=== PATIENT | male | born 1965 | race Caucasian/White ===

== ENCOUNTER 2019-12-11 14:20 | Inpatient (IN) | payer SELFPAY ==
[~2019-12-11] VITALS: Ht 188 cm; Wt 142.2 kg
[2019-12-11] MEDS ORDERED: ONDANSETRON HCL INJ 2MG/ML 2ML 2 MG/ML VIAL IV STA (14:29)
[2019-12-11] MEDS ORDERED: LABETALOL HCL 5 MG/ML 20ML VIAL IV STA (14:29)
[2019-12-11] MEDS ORDERED: MORPHINE SULFATE INJ 4 MG/ML INJ 1ML IV STA (14:29)
[2019-12-11] MEDS ORDERED: ASPIRIN 81 MG CHEW TAB PO ONE (14:30)
[2019-12-11 14:57] LABS: BASOPHILS % 0.2 % (0.0-1.0); EOSINOPHILS % 0.4 % (0.0-6.0); HEMATOCRIT 43.4 % (38.2-49.6); HEMOGLOBIN 15.1 g/dL (14.0-18.0); LYMPHOCYTES # (AUTO) 1.2 (1.0-3.2); LYMPHOCYTES % 11.4 % (18.0-39.1); MEAN CORPUSCULAR HEMOGLOBIN 30.1 pg (28-32); MEAN CORPUSCULAR HGB CONC 34.8 g/dL (31-35); MEAN CORPUSCULAR VOLUME 86.6 fL (81-99); MONOCYTES # (AUTO) 0.7 (0.2-0.8); MONOCYTES % 7.3 % (4.4-11.3); NEUTROPHILS # (AUTO) 8.2 (2.1-6.9); NEUTROPHILS % 80.4 % (38.7-80.0); PLATELET COUNT 212 x10e3/uL (140-360); RED BLOOD COUNT 5.01 x10e6/uL (4.3-5.7); RED CELL DISTRIBUTION WIDTH 13.7 % (11.7-14.4)
[2019-12-11] MEDS ORDERED: DIAZEPAM 5 MG TAB PO ONE (15:00)
[2019-12-11 15:15] LABS: INR 0.9; PROTHROMBIN TIME 12.7 seconds (11.9-14.5)
[2019-12-11 15:16] LABS: PARTIAL THROMBOPLASTIN TIME 27.4 seconds (23.8-35.5)
[2019-12-11 15:20] LABS: ALANINE AMINOTRANSFERASE 46 IU/L (0-55); ALBUMIN 4.1 g/dL (3.5-5.0); ALBUMIN/GLOBULIN RATIO 1.5 (0.8-2.0); ALKALINE PHOSPHATASE 58 IU/L (40-150); ANION GAP 13.7 mmol/L (8-16); BLOOD UREA NITROGEN 11 mg/dL (7-26); BUN/CREATININE RATIO 13 (6-25); CALCIUM 9.1 mg/dL (8.4-10.2); CARBON DIOXIDE 22 mmol/L (22-29); CHLORIDE 104 mmol/L (98-107); CREATINE KINASE 1187 IU/L (30-200); CREATININE, SERUM 0.84 mg/dL (0.72-1.25); EST GLOMERULAR FILTRATION RATE > 60 ML/MIN (60-); GLUCOSE 188 mg/dL (74-118); MAGNESIUM 1.8 MG/DL (1.3-2.1); POTASSIUM 3.7 mmol/L (3.5-5.1); SODIUM 136 mmol/L (136-145)
--- NOTE | 2019-12-11 15:32 | Diagnostic Imaging Report ---
EXAMINATION: CHEST SINGLE (PORTABLE) INDICATION: Chest pain COMPARISON: None FINDINGS: LINES/TUBES:EKG leads overlie the chest. LUNGS:The lungs are well-inflated. No focal consolidation or pulmonary edema. PLEURA:No pleural effusion or pneumothorax. MEDIASTINUM:The cardiomediastinal silhouette appears normal in size and shape. BONES/SOFT TISSUES:No acute osseous injury. ABDOMEN:No free air under the diaphragm. IMPRESSION: No focal pneumonia or pulmonary edema. Signed by: Nisha Barnard MD on 12/11/2019 3:29 PM
[2019-12-11] MEDS ORDERED: ASPIRIN 81 MG CHEW TAB PO STA (15:44)
[2019-12-11] MEDS ORDERED: CLOPIDOGREL BISULFATE 75 MG TAB PO ONE (15:45)
[2019-12-11] MEDS: METOPROLOL TARTRATE 25 MG TAB PO SCH (15:45)
[2019-12-11] MEDS ORDERED: MORPHINE SULFATE 2 MG/ML SYR 1ML IV PRN (15:45)
--- NOTE | 2019-12-11 15:50 | NUR ---
Dr. Hyun Varma in with patient. laborer shipyard nurse in room with patient. discussed procedure with patient. printed out consent but cathlab nurse already had one. patient being prepped for transfer to laborer shipyard. son retrieved from parking lot and brought to see patient.
[2019-12-11 15:55] LABS: CLARITY,URINE SL CLOUDY (CLEAR); COLOR,URINE YELLOW (YELLOW); LEUKOCYTE ESTERASE ,URINE NEGATIVE (NEGATIVE); NITRITE,URINE NEGATIVE (NEGATIVE)
[2019-12-11 15:56] LABS: BILIRUBIN,URINE NEGATIVE (NEGATIVE); KETONES,URINE NEGATIVE (NEGATIVE); PROTEIN,URINE DIPSTICK NEGATIVE (NEGATIVE); URINE UROBILINOGEN 0.2 mg/dL (0.2 - 1)
[2019-12-11 15:57] LABS: AMPHETAMINES SCREEN,URINE NEGATIVE (NEGATIVE); BENZODIAZEPINES SCREEN,URINE NEGATIVE (NEGATIVE); PHENCYCLIDINE SCREEN,URINE NEGATIVE (NEGATIVE)
[2019-12-11] MEDS ORDERED: SODIUM CHLORIDE 0.9% 1000ML 1,000 ML ONE ×2 (15:59→16:05)
[2019-12-11] MEDS ORDERED: MIDAZOLAM HCL 2 MG/2 ML VIAL ONE (16:03)
[2019-12-11] MEDS ORDERED: BIVALRIUDIN 250 MG/VIAL VIAL IV ONE (16:04)
[2019-12-11] MEDS ORDERED: SODIUM CHLORIDE 0.9% 50ML 50 ML ONE (16:04)
[2019-12-11] MEDS ORDERED: LIDOCAINE HCL 2% LOCAL 20 ML VIAL ONE (16:04)
[2019-12-11] MEDS ORDERED: FENTANYL CITRATE/PF 100MCG/2 ML INJ ONE (16:04)
[2019-12-11] MEDS ORDERED: IOPAMIDOL 370 MG/ML 200 ML INFUS..BTL INJ ONE ×2 (16:05→16:50)
[2019-12-11] MEDS ORDERED: NITROGLYCERIN/D5W 200 MCG/ML 250 ML ONE (16:05)
[2019-12-11] MEDS ORDERED: HEPARIN SOD/SOD CHLORIDE 2,000 ML ONE (16:05)
[2019-12-11] MEDS: SODIUM CHLORIDE 0.9% 1000ML 1,000 ML IV SCH (16:08)
[2019-12-11] MEDS ORDERED: EPTIFIBATIDE 75mg 100ML 100 ML ONE ×2 (16:11→20:46)
[2019-12-11] MEDS ORDERED: EPTIFIBATIDE 20 ML ONE (16:11)
--- OUTSIDE RECORDS SUMMARY | 2019-12-11 16:39 | XMS REPORT ---
Author Author [facility] Organization [facility] Address Unknown Phone Unavailable Care Team Providers Care Community Theater Actor Name Role Phone Jason GODFREY Unavailable Unavailable Problems This patient has no known problems. Allergies, Adverse Reactions, Alerts This patient has no known allergies or adverse reactions. Medications This patient has no known medications. Results Test Description Test Time Test Comments Text Results Atomic Results Result Comments CHEST SINGLE (PORTABLE) 2019-12-11 15:28:00 [place] [address] Patient Name: PEARL LIAO MR #: [id number] : 1965 Age/Sex: 53/M Req #: [id number] Adm Physician: Ordered by: HORTENSIA GODFREY MD Report #: [id number] Location: ER Room/Bed: Procedure: [id number] DX/CHEST SINGLE (PORTABLE) Exam Date: 12/11/19 Exam Time: 1500 REPORT STATUS: Signed EXAMINATION: CHEST SINGLE (PORTABLE) INDICATION: Chest pain COMPARISON: None FINDINGS: LINES/TUBES:EKG leads overlie the chest. LUNGS:The lungs are well-inflated. No focal consolidation or pulmonary edema. PLEURA:No pleural effusion or pneumothorax. MEDIASTINUM:The cardiomediastinal silhouette appears normal in size and shape. BONES/SOFT TISSUES:No acute osseous injury. ABDOMEN:No free air under the diaphragm. IMPRESSION: No focal pneumonia or pulmonary edema. Signed by: Robyn Barnard MD on 12/11/2019 3:29 PM Dictated By: ROBYN BARNARD MD [id number] Transcribed By: SHIKHA on 12/11/19 1529 COPY TO: HORTENSIA GODFREY MD
[2019-12-11] MEDS ORDERED: CEFAZOLIN SOD 2 GM/D5W 50ML 50 ML IV ONE (17:42)
[2019-12-11 20:00] VITALS: BP 126/73
[2019-12-11] MEDS ORDERED: CLONAZEPAM 0.5 MG TAB PO PRN (20:30)
[2019-12-11] MEDS: ONDANSETRON HCL INJ 2MG/ML 2ML 2 MG/ML VIAL IV PRN (20:31)
[2019-12-11 21:00] VITALS: BP 156/92
[2019-12-11] MEDS ORDERED: EPTIFIBATIDE 75mg 100ML 100 ML IV SCH (21:15)
[2019-12-11] MEDS ORDERED: ACETAMINOPHEN 325 MG TAB PO PRN (21:30)
[2019-12-11] MEDS ORDERED: LABETALOL HCL 5 MG/ML 20ML VIAL IV PRN (21:30)
[2019-12-11 21:36] VITALS: BP 158/87
[2019-12-11 22:00] VITALS: BP 149/88
[2019-12-11] MEDS ORDERED: DEXTROSE 50% SYRINGE 50 ML IV PRN (22:00)
[2019-12-11 23:00] VITALS: BP 114/71
--- NOTE | 2019-12-11 23:51 | Consultation ---
DATE OF CONSULTATION: 12/11/2019 Cardiac Consultation REASON FOR CONSULTATION: Acute ftd-EL-ognooreku myocardial infarction. HISTORY OF PRESENT ILLNESS: A 53-year-old gentleman, who is known with back problem, obesity, "deviated septum," back pain, and hip pain. For the last 3 days, he is having exertional chest tightness, chest pressure, and back problem. He thought he hurt his back. Yesterday, the pain was very severe. Today, the pain recurred, very severe, associated with diaphoresis. So, he came to the emergency room. His EKG showed acute ST-elevation myocardial infarction, but his troponin was positive at 17, CK total of 1187, CK-MB of 120. He continued to have chest pain. The patient does have symptoms to suggest sleep apnea. There is wheezing and shortness of breath. He cannot stay flat. There is no paroxysmal nocturnal dyspnea. There is no syncope or presyncope. REVIEW OF SYSTEMS: GENERAL: No fever. No chills. HEENT: No vision problem. No hearing problem. PULMONARY AND CARDIAC: As per acute illness. No recent travel. No pleuritic chest pain. Typical myocardial infarction pain, preceded by angina by history. GI: No hematemesis. No melena. : No hematuria. No dysuria. MUSCULOSKELETAL: Back pain and hip pain. HEMATOLOGY: No easy bruising or bleeding. ENDOCRINE: No diabetes mellitus. No weight loss. No weight gain. No heat and cold intolerance. HEMATOLOGY: No easy bruising or bleeding. SOCIAL HISTORY: He is divorcee. He is nonsmoker, but rarely he will get a cigarette. He drinks wine every now and then. 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 PAST MEDICAL AND SURGICAL HISTORY: 1. Back surgery twice. 2. Deviated septum. 3. Sleep apnea. 4. Back pain. 5. Hip pain. 6. Minor hand surgery. 7. Obesity. FAMILY HISTORY: Father had complication of CVA during cardiac catheterization in [place]. Mother in her 80s. One brother who is obese and he got benzene, coma and a lot of complication. Two children, one son and one daughter. PHYSICAL EXAMINATION: VITAL SIGNS: Height of 6 foot 3 inches, weight of 285 pounds. Blood pressure 130/80, heart rate of 100, respiratory rate of 18. HEENT: Pupils are equal and reactive. NECK: No elevation of jugular venous pulsation. CHEST: Clear to auscultation and percussion. HEART: The heart sound is audible. Soft heart murmur is present. ABDOMEN: Soft, obese. EXTREMITIES: No cyanosis, no clubbing, no edema. NEUROLOGIC: Awake, alert, and oriented, very nervous. IMPRESSION AND PLAN: 1. Acute cpf-AR-hinlajeru myocardial infarction with continuation of angina and chest pain. 2. Obesity. 3. Sleep apnea. 4. Family history of coronary artery disease. 5. Inability to be flat in bed. 6. Hip problem. The patient was given Plavix, started on Integrilin IV fluids. He will be taken urgently to the supervisor labor gang. Procedure risks, benefits, and alternatives are discussed and explained. High risk is explained because of the gvn-EW-heuqrassk myocardial infarction. Questions are answered. MD CEDRICK Solis/TARUNL /[id number]
[2019-12-12] VITALS (14 sets, daily range): BP systolic 115–143; BP diastolic 61–97
--- NOTE | 2019-12-12 01:37 | Operative Report ---
DATE OF PROCEDURE: 12/11/2019 SURGEON: Chelo Varma MD PROCEDURES PERFORMED: 1. Left heart cardiac catheterization with coronary angiography. 2. Left ventriculography. 3. Complex percutaneous coronary intervention of the long proximal to distal right coronary artery lesion, culprit of btq-IN-lnvkftelp myocardial infarction. 4. Angio-Seal closure of the right common femoral arteriotomy. INDICATION FOR PROCEDURE: A 53-year-old male with history of hypertension, hypercholesteremia, morbid obesity, presents to this institution with escalating substernal chest pain, pressure, tightness, heaviness occurring at rest with troponin elevated to 17. This is classic mvd-AX-zthzclssm myocardial infarction. The patient was taken urgently to the tender labor. DESCRIPTION OF PROCEDURE: After risks, benefits, pros and cons of today's procedure was explained, the patient agreed to proceed. He was brought down to the cardiac catheterization laboratory, where the right groin was prepped and draped in usual sterile fashion. A 1% lidocaine solution was instilled in the right groin region and access to the right femoral artery was obtained. A short 4-Croatian femoral sheath was placed. We initially went up with a JL5 diagnostic catheter for selective left coronary artery. Then, we took a 3DRC diagnostic catheter for selective right coronary artery for right for angiography. Angled pigtail catheter was utilized for ventriculography and hemodynamic assessment of ventricular filling pressures. Essentially, the patient was found to have 100% distal RCA disease in a very complex ectatic artery. There was already some faint sobf-kq-rrbmu collaterals seen. At that point in time, we decided to proceed with intervention. He had already been preloaded with Plavix in the emergency room as well as given an aspirin. We gave IV Angiomax bolus for systemic anticoagulation with supplemental Integrilin infusion. We took a 6-Croatian 3DRC guiding catheter and selected the right coronary artery. Utilizing a 180 cm run-through wire, we probed the lesion, however, this would not penetrate the occluded segment in the mid to distal RCA. We then took a [employer] Emerge 2.0 x 15 mm pwtv-nuc-mkvr balloon and utilizing a Tape Edge Machine Operator 50 guidewire, we were able to after great care across the 100% occluded segment with the balloon into the segment and pre-dilated with 4 atmosphere inflations. This opened up the artery, which revealed severely diseased distal portion of the vessel. A very, very long lesion was noted. We ended up then taking out our Tape Edge Machine Operator 50 wire and utilize a 300 cm P[place] flex guidewire for the remainder of the intervention as a rail of intervention. We then took a 2.5 x 15 mm Emerge balloon and did 4 inflations up to 10 atmospheres of inflation to further pre-dilate all the way to the mid RCA. We then took a Resolute Joshua 2.75 x 38 mm drug-eluting stent. However, this would not pass easily. We took a 6-Croatian guideliner, got extension and took back the 2.75 x 38 mm Resolute [place] stent and this was able to cover the entire mid RCA. We were unable to pass it further. We decided to take the stent here and we deployed this up to 18 atmospheres of inflation. Once the stent went up, we were able to slide the guide extension into the distal RCA quite easily. We then took a Resolute Joshua 2.75 x 34 mm drug-eluting stent and treated from the crux of the RCA all the way back to the just right before the distal curvature. We then took up another Resolute Joshua 2.75 x 26 mm drug-eluting stent and overlapped the stent with two other stents. We then took an NC 3.5 x 15 mm Quantum apex balloon and postdilated the distal stent with 6 atmospheres inflation and then post dilate the entire segment going to 8 atmospheres just proximal to the 10 atmospheres, proximal to 12 atmospheres, proximal to that and then up to 15 atmospheres in the mid RCA and finally 20 atmospheres in the proximal stent edge. At that point in time, we looked at the vessel and following angiography revealed 0% residual stenosis. Normal flow and no issues. At that point in time, we decided to conclude the case. The guiding catheters were removed with the J-wire and an Angio-Seal closure device successfully deployed achieving hemostasis. COMPLICATIONS: None. ESTIMATED BLOOD LOSS: Minimal. FINDINGS: 1. Left main is angiographically normal, gives rise to an LAD and circumflex branch. 2. LAD has a 30% proximal stenosis, 30% mid stenosis and a 30% distal stenosis. The remainder of this vessel shows mild diffuse disease. 3. Left circumflex artery has an OM1 branch with a 70-75% proximal mid stenosis. This vessel terminates into an OM2 branch showed just mild irregularities. There is faint oijw-qz-rhotb collaterals seen filling the right PDA and right PLV system. 4. RCA is ectatic proximal segment with a 60% mid RCA stenosis. In the mid to distal RCA, there is 100% total occlusion of the RCA without any reconstituted flow. 5. Left ventricular ejection fraction is 40-45% with inferobasal hypokinesis. End-diastolic pressure is 22 mmHg. There is no significant LV to aortic pullback gradient. INTERVENTION SUMMARY: Successful treatment of the long diseased RCA with overlapping stents placement, going from distal to proximal is a Resolute 2.75 x 34 mm drug- eluting stent, followed by 2.75 x 26 mm drug-eluting stent, followed by 2.75 x 38 mm drug-eluting stent in the mid RCA. PLAN/RECOMMENDATIONS: 1. Aspirin and Plavix therapy. 2. Statin therapy. 3. Aggressive risk factor modification and medical therapy. 4. A 6-hour bedrest. 5. ICU for further care and management. MD MAGGY Higuera/KENDELL /[id number] MTDDivina
--- NOTE | 2019-12-12 02:51 | History and Physical ---
ADDITIONAL ATTENDING PHYSICIAN: Catracho Hernandez MD. CHIEF COMPLAINT: Chest pain. HISTORY OF PRESENT ILLNESS: The patient is a 53-year-old male, who had been working out with his son about 5 days ago, then subsequently three days ago started having some sharp back pain. His flank pain eased some with massage by his son. Middle last night, his chest pain became sharp in the center of his chest and did not subside, thus he came to the emergency department. His most recent left heart catheterization was [address] Varma with Cardiology followed. The patient's cardiac enzymes were elevated. He went to yard labor supervisor around 4:20 this afternoon and had 3 long stents placed in the right coronary artery. He does not have a PCP. PAST MEDICAL HISTORY: Obesity, hypertension, diabetes mellitus, and obstructive sleep apnea. PAST SURGICAL HISTORY: Laminectomy and umbilical hernia mesh surgery. FAMILY HISTORY: Father at age 62 from complications due to stroke, also had an [place] and back surgery. Mother is still alive at age 80. Ejection fraction 20%. History of back surgery. Brother has a history of an [place]. SOCIAL HISTORY: Occasional smoker, occasional drinker of wine. Admits to marijuana use. Denies any hard drugs such as cocaine, methamphetamine or crack. He lives with his mother and his son. He has been on disability in the last 3 years. He is not working, but does care for his elderly mother. ALLERGIES: NO KNOWN ALLERGIES. HOME MEDICATIONS: None listed. REVIEW OF SYSTEMS: CONSTITUTIONAL: The patient has been trying to lose weight lately, but generally unsuccessful. Last night he had some chills, none now. Complains of some dry throat. Denies any chills or fever now. EYES: Does not wear glasses. EARS AND NOSE: No complaints. RESPIRATORY: No complaints of shortness of breath, cough or phlegm. GENITOURINARY: Complaints of difficulty with urination. PSYCHIATRIC: Denies psychiatric history. INTEGUMENTARY: Denies lesions or rash. CARDIOVASCULAR: As listed per history of present illness. Currently, no complaints of chest pain or palpitations. GASTROINTESTINAL: No complaints of nausea, vomiting, diarrhea, or constipation. Most recent bowel movement was today, made the 1st. MUSCULOSKELETAL: Denies any muscular pain or joint pain. NEUROLOGIC: Denies headache or dizziness. ENDOCRINE: Known diabetic. HEMATOLOGIC: Denies any bleeding or bruising. PHYSICAL EXAMINATION: CURRENT VITAL SIGNS: Temperature 97.9, heart rate 77, respirations 16, blood pressure 142/89, and pulse oximetry 89% on room air. GENERAL: The patient is lying supine on a stretcher. BMI 40.2. HEENT: Extraocular eye movements intact. Sclerae anicteric. NECK: Supple. No lymphadenopathy. CHEST: Clear to auscultation. Respiratory pattern even and nonlabored. CARDIOVASCULAR: Regular rate and rhythm. No murmur. ABDOMEN: Bowel sounds positive. Obese, soft, and nontender. No guarding. EXTREMITIES: Without pitting edema. No clubbing, cyanosis, or signs or symptoms of DVT. SKIN: Warm and dry. NEUROLOGICAL: GCS 15. Nonfocal. PSYCHIATRIC: Normal judgment and insight. LABORATORY DATA: WBC 10.14, hemoglobin 15.1, hematocrit 43.4, and platelets 212. PT 12.7. INR 0.9. PTT 27.4. Sodium 136, potassium 3.7, chloride 104, CO2 of 22, anion gap 13.7, BUN 11, creatinine 0.84, estimated GFR greater than 60, glucose 188, calcium 9.1, magnesium 1.8. Total bilirubin 0.6, AST 121, ALT 46, alkaline phosphatase 58. Creatine kinase 1187, CK-MB 119.7, troponin I 17.134. B type natriuretic peptide 52.6. Total protein 6.9, albumin 4.1. Urinalysis showed slightly cloudy urine, negative nitrite, negative leukocyte esterase. TOXICOLOGY: Urine drug screen is positive for urine cannabinoids. Chest x-ray today showed no focal pneumonia or pulmonary edema. A 12-lead EKG done around 14:21 this afternoon showed normal sinus rhythm with a ventricular rate of 68. ASSESSMENT AND PLAN: 1. NSTEMI, status post PCI with placement of three long stents in the RCA on 12/11/[address] Varma. The patient has been taken from the yard labor supervisor to ICU room #195. Eptifibatide IV continues at 2 mcg/kg per minute. Continue cardiac medications such as aspirin, Plavix, p.r.n. morphine, labetalol 5 mg IV q.6 hours p.r.n. ordered for systolic blood pressure greater than 150. 2. Controlled hypertension. Monitor blood pressure. Continue metoprolol tartrate 25 mg p.o. q.12 hours and p.r.n. labetalol. 3. Uncontrolled type 2 diabetes mellitus. Glucose level is 188. We will check hemoglobin A1c in the morning/fingerstick blood glucose level be checked a.c. at bedtime. We will start low-dose regular insulin sliding scale. 4. Obstructive sleep apnea. The patient does not use a BiPAP or CPAP at home, monitor. 5. Morbid obesity with BMI 40.2. Dietary restrictions. 6. Prophylaxis. Pepcid and SCDs. Time spent 60 minutes. Billing code [id number]. Dictated by Daljit Canales NP MD ILIANA Gomez/MODL /[id number]
[2019-12-12] MEDS: SODIUM CHLORIDE 0.9% 1000ML 1,000 ML IV SCH (04:22)
[2019-12-12] MEDS: METOPROLOL TARTRATE 25 MG TAB PO SCH (04:22)
[2019-12-12 05:14] LABS: BASOPHILS % 0.3 % (0.0-1.0); EOSINOPHILS % 0.3 % (0.0-6.0); HEMOGLOBIN 14.4 g/dL (14.0-18.0); LYMPHOCYTES # (AUTO) 0.9 (1.0-3.2); LYMPHOCYTES % 11.9 % (18.0-39.1); MEAN CORPUSCULAR HEMOGLOBIN 29.6 pg (28-32); MEAN CORPUSCULAR HGB CONC 33.5 g/dL (31-35); MEAN CORPUSCULAR VOLUME 88.3 fL (81-99); MONOCYTES # (AUTO) 0.7 (0.2-0.8); MONOCYTES % 10.3 % (4.4-11.3); NEUTROPHILS # (AUTO) 5.5 (2.1-6.9); NEUTROPHILS % 76.8 % (38.7-80.0); PLATELET COUNT 175 x10e3/uL (140-360); RED BLOOD COUNT 4.87 x10e6/uL (4.3-5.7); RED CELL DISTRIBUTION WIDTH 13.8 % (11.7-14.4)
[2019-12-12 05:28] LABS: INR 0.98; PROTHROMBIN TIME 13.6 seconds (11.9-14.5)
[2019-12-12 05:29] LABS: PARTIAL THROMBOPLASTIN TIME 29.3 seconds (23.8-35.5)
[2019-12-12 05:39] LABS: MAGNESIUM 1.7 MG/DL (1.3-2.1); PHOSPHORUS 2.2 MG/DL (2.3-4.7)
[2019-12-12 05:43] LABS: ALANINE AMINOTRANSFERASE 46 IU/L (0-55); ALBUMIN 3.5 g/dL (3.5-5.0); ALBUMIN/GLOBULIN RATIO 1.2 (0.8-2.0); ALKALINE PHOSPHATASE 60 IU/L (40-150); BLOOD UREA NITROGEN 9 mg/dL (7-26); BUN/CREATININE RATIO 11 (6-25); CALCIUM 8.6 mg/dL (8.4-10.2); CARBON DIOXIDE 24 mmol/L (22-29); CHLORIDE 106 mmol/L (98-107); CHOL/HDL RATIO 6.3 (3.9-4.7); CHOLESTEROL 189 MD/DL (0-199); EST GLOMERULAR FILTRATION RATE > 60 ML/MIN (60-); GLUCOSE 173 mg/dL (74-118); HDL CHOLESTEROL 30 MG/DL (40-60); LDL CHOLESTEROL 115 MG/DL (60-130); SODIUM 139 mmol/L (136-145); TRIGLYCERIDES 220 MG/DL (0-149)
[2019-12-12 06:01] LABS: THYROID STIMULATING HORMONE 2.137 uIU/mL (0.350-4.940)
[2019-12-12] MEDS: ONDANSETRON HCL INJ 2MG/ML 2ML 2 MG/ML VIAL IV PRN (06:08)
[2019-12-12] MEDS ORDERED: MAGNESIUM OXIDE 400 MG TAB PO ONE (07:30)
[2019-12-12] MEDS ORDERED: FAMOTIDINE 20 MG TAB PO SCH (07:30)
[2019-12-12] MEDS: INSULIN REGULAR, HUMAN 100 UNIT/1 ML 3ML VIAL SQ SCH ×2 (07:44→11:24)
[2019-12-12] MEDS ORDERED: ASPIRIN 81 MG ENTERIC COATED PO SCH (09:00)
--- NOTE | 2019-12-12 09:33 | Progress Note ---
DATE: 12/12/2019 ADDITIONAL ATTENDING PHYSICIAN: Catracho Hernandez MD SUBJECTIVE: The patient is asleep, arouses easily. Denies pain. Does complain of nausea. States he ate "bad food" apparently in [place] a few days ago and thus has some nausea, otherwise minimal complaints. He has had some dry throat. Night before last, he had chills, but none now. Denies difficulty urinating. He has been out of bed. Last bowel movement yesterday. OBJECTIVE: VITAL SIGNS: Temperature 97.8, T-max 98.2, heart rate 68, blood pressure 142/97, respiratory rate 16, oxygen saturation 100%. GENERAL: Supine, asleep, easily arousable. BMI 40.16. HEENT: EOMI. Sclerae anicteric. NECK: Supple. No lymphadenopathy, thyromegaly, or JVD. CHEST: Minimal expiratory sibilant wheezing. Respiratory pattern even and unlabored. He is on 3 L of oxygen via nasal cannula. CARDIOVASCULAR: Regular rate and rhythm. No murmur. ABDOMEN: Bowel sounds positive. Obese, soft, nontender. No guarding. EXTREMITIES: No pitting edema, clubbing, cyanosis, or signs of DVT. SKIN: Warm and dry. NEUROLOGIC: GCS 15, nonfocal. LABORATORY DATA: Sodium 139, potassium 4.0, chloride 106, CO2 of 24. BUN 9, creatinine 0.8. Estimated GFR greater than 60, glucose 173, phosphorus 2.2, magnesium 1.7. WBC 7.16, hemoglobin 14.4, hematocrit 43, platelets 175. Total bilirubin 0.7. AST 114, ALT 46, alkaline phosphatase 60. Hemoglobin A1c 7.8%. TSH 2.137. Triglycerides 220, cholesterol 189, LDL 115, HDL 30. No new imaging studies. IMPRESSION AND PLAN: 1. Aov-ZF-wkfbvws elevation myocardial infarction, status post PCI with placement of 3 long stents in the RCA on 12/11/[address] Varma. Eptifibatide (Integrilin) has been discontinued. He is on normal saline at 100 mL an hour IV. Continue his DAPT with aspirin and Plavix. Morphine p.r.n. for pain. Remains in ICU. Can likely transfer to the floor depending up on Cardiology recommendations. 2. Controlled hypertension. Monitor blood pressure. Continue metoprolol tartrate 25 mg p.o. q.12 hours and p.r.n. IV labetalol for systolic blood pressure greater than 150. 3. Uncontrolled type 2 diabetes mellitus. Glucose 173. Hemoglobin A1c 7.8%. Continue low-dose regular insulin sliding scale. Renal function within normal limits. No home medications listed. We will double check and see if he was on medications at home. We will start him on metformin. 4. Diabetic gastroparesis and possible acute gastroenteritis from [place]. We will start him on Reglan 10 mg a.c. bedtime, and change the Pepcid to Protonix. 5. Obstructive sleep apnea. Does not use BiPAP or CPAP at home, monitor. 6. Mild acute hypomagnesemia. Magnesium oxide 400 mg p.o. once this morning. 7. Mild acute hypophosphatemia. Phosphorus level 2.2. Monitor. 8. Morbid obesity with BMI 40.2. Dietary restrictions. 9. Prophylaxis. Protonix and SCDs. Time spent 35 minutes. Billing code [id number]. Dictated by Daljit Canales NP MD ILIANA Gomez/TARUNL /[id number]
--- NOTE | 2019-12-12 09:38 | Progress Note ---
DATE: ADDENDUM: ADDITIONAL ATTENDING PHYSICIAN: Catracho Hernandez M.D. Billing code [id number]. Dictated by Daljit Canales, CONTACT CENTER REPRESENTATIVE MD RUFUS GomezP/TARUNL /[id number]
[2019-12-12] MEDS ORDERED: CLOPIDOGREL BISULFATE 75 MG TAB PO SCH (11:00)
[2019-12-12] MEDS ORDERED: METOCLOPRAMIDE HCL 10 MG TAB PO SCH (11:30)
[2019-12-12] MEDS ORDERED: LOPRESSOR25 MG PO (15:01)
[2019-12-12] MEDS ORDERED: METOCLOPRAMIDE10 MG PO (15:01)
[2019-12-12] MEDS ORDERED: ASPIRIN EC81 MG PO (15:01)
[2019-12-12] MEDS ORDERED: LIPITOR20 MG PO (15:01)
[2019-12-12] MEDS ORDERED: PLAVIX75 MG PO (15:01)
--- NOTE | 2019-12-12 17:35 | Discharge Summary ---
Mr. Fuentes is a 53-year-old male, who was admitted with sharp central chest pain, which did not subside. He underwent a left heart catheterization with PCI by Dr. Varma with Cardiology, and had placement of three long stents in the right coronary artery. ADMITTING DIAGNOSES: 1. NSTEMI, status post PCI with placement of three long stents in the right coronary artery on 12/11/2019, by Dr. Varma. 2. Controlled hypertension. 3. Uncontrolled type 2 diabetes mellitus. 4. Obstructive sleep apnea. 5. Morbid obesity with BMI of 40.2. DISCHARGE DIAGNOSES: 1. NSTEMI, status post PCI with placement of three long stents in the right coronary artery on 12/11/2019, by Dr. Varma. 2. Controlled hypertension. 3. Uncontrolled type 2 diabetes mellitus. 4. Diabetic gastroparesis and possible acute gastroenteritis from [place]. 5. Obstructive sleep apnea. 6. Mild acute hypomagnesemia. 7. Mild acute hypophosphatemia. 8. Morbid obesity with BMI of 40.2. The patient is seen postprocedure, please refer to the progress note that was dictated earlier today for specifics. The patient is doing well overall, has been seen by Dr. Varma this morning. Per Dr. Varma, the patient to be discharged home. He has written prescriptions for Plavix 75 mg p.o. daily, atorvastatin 20 mg p.o. daily, metoprolol tartrate 12.5 mg p.o. b.i.d., metoclopramide 10 mg p.o. a.c. HS for diabetic gastroparesis. The patient be discharged on ADA diet. Currently, breathing room air. No change in physical examination. Most recent vital signs, temperature 98.4, heart rate 74, respirations 16, blood pressure 138/80, and oxygen saturation 100%. Follow up with Dr. Varma on Saturday. He does not have a PCP. Can follow up with Dr. Hernandez in 1 to 2 weeks in his office. Light activity over the next 2 weeks. No strenuous activity. Dictated by Daljit Canales NP Catracho Hernandez MD HWP/MODL /[id number]
[2019-12-12] MEDS ORDERED: ATORVASTATIN 20 MG TAB PO SCH (21:00)
== END 2019-12-12 16:06 | disposition home or self-care (01) | DRG 247 ==
LOC: ER 14:20 → CATH LAB 16:20 → ICU 20:10
PROVIDERS: ADMIT Internal Medicine Cardiovascular Disease; ATTEND Internal Medicine Cardiovascular Disease
PROC: 027036Z Dilation of Coronary Artery, One Artery with Three Drug-eluting Intraluminal Devices, Percutaneous Approach (ICD-10-PCS; principal; 2019-12-11)
PROC: 4A023N7 Measurement of Cardiac Sampling and Pressure, Left Heart, Percutaneous Approach (ICD-10-PCS; 2019-12-11)
PROC: B2111ZZ Fluoroscopy of Multiple Coronary Arteries using Low Osmolar Contrast (ICD-10-PCS; 2019-12-11)
PROC: B2151ZZ Fluoroscopy of Left Heart using Low Osmolar Contrast (ICD-10-PCS; 2019-12-11)
DX: I21.4 Non-ST elevation (NSTEMI) myocardial infarction (principal); Z68.41 Body mass index [BMI] 40.0-44.9, adult; G47.33 Obstructive sleep apnea (adult) (pediatric); E11.9 Type 2 diabetes mellitus without complications; E66.01 Morbid (severe) obesity due to excess calories; E11.43 Type 2 diabetes mellitus with diabetic autonomic (poly)neuropathy; K31.84 Gastroparesis; Z79.4 Long term (current) use of insulin; E83.42 Hypomagnesemia; E83.39 Other disorders of phosphorus metabolism
CPT/HCPCS: 36415; 71045; 80053; 80061; 80307; 81001; 82550; 82553; 82948; 83036; 83735; 83880; 84100; 84443; 84484; 85025; 85610; 85730; 92928; 93005; 93306; 93458; 99152; 99284; C1760; C1766; C1769; C1876; J0583; J0690; J1327; J2001; J2250; J2405; J3010; J7030; Q9967

== ENCOUNTER 2021-05-23 11:13 | Emergency (ER) | payer OTHER ==
[~2021-05-23] VITALS: Ht 188 cm; Wt 122.5 kg
[~2021-05-23 11:13] MED LIST: ASPIRIN EC81 MG PO; LIPITOR20 MG PO; LOPRESSOR25 MG PO; METOCLOPRAMIDE10 MG PO; PLAVIX75 MG PO
[2021-05-23 11:40] LABS: BASOPHILS % 0.4 % (0.0-1.0); EOSINOPHILS # (AUTO) 0.1 (0.0-0.4); EOSINOPHILS % 0.9 % (0.0-6.0); HEMATOCRIT 48.2 % (38.2-49.6); HEMOGLOBIN 15.9 g/dL (14.0-18.0); LYMPHOCYTES # (AUTO) 1.1 (1.0-3.2); LYMPHOCYTES % 15.4 % (18.0-39.1); MEAN CORPUSCULAR HEMOGLOBIN 29.4 pg (28-32); MEAN CORPUSCULAR VOLUME 89.1 fL (81-99); MONOCYTES # (AUTO) 0.5 (0.2-0.8); MONOCYTES % 6.9 % (4.4-11.3); NEUTROPHILS # (AUTO) 5.3 (2.1-6.9); NEUTROPHILS % 76.1 % (38.7-80.0); PLATELET COUNT 191 x10e3/uL (140-360); RED BLOOD COUNT 5.41 x10e6/uL (4.3-5.7); RED CELL DISTRIBUTION WIDTH 13.6 % (11.7-14.4)
[2021-05-23 11:58] LABS: ALBUMIN 4.3 g/dL (3.5-5.0); ALBUMIN/GLOBULIN RATIO 1.5 (0.8-2.0); ANION GAP 13.1 mmol/L (8-16); POTASSIUM 4.1 mmol/L (3.5-5.1)
== END 2021-05-23 13:25 | disposition home or self-care (01) ==
LOC: ER 11:30
DX: M54.9 Dorsalgia, unspecified (principal); E11.65 Type 2 diabetes mellitus with hyperglycemia; I10 Essential (primary) hypertension; I25.10 Atherosclerotic heart disease of native coronary artery without angina pectoris; Z95.5 Presence of coronary angioplasty implant and graft; G47.30 Sleep apnea, unspecified; E66.9 Obesity, unspecified; F17.210 Nicotine dependence, cigarettes, uncomplicated
CPT/HCPCS: 36415; 71045; 80053; 83880; 84484; 85025; 93005; 99284